=== PATIENT | female | born 1980 | race American Indian/Alaskan Native ===

== ENCOUNTER 2017-01-25 15:20 | Emergency (ER) | payer SELFPAY ==
--- NOTE | 2017-01-25 17:16 | Emergency Department Report ---
Entered by NELIA CHU, acting as scribe for RODNEY ASHLEY NP. Chief Complaint: Abdominal Pain Stated Complaint: ABDOMINAL PAIN Time Seen by Provider: 01/25/17 17:07 - HPI History of Present Illness: 36 y/o female presents with abd pain that started 3 days ago. Sx include n/v. Pt endorses tobacco use. LMP 12/05/16. - ROS Review of Systems: +abd pain +n/v - Exam Vital Signs: Vital Signs 01/25/17 17:04 Temperature 98.6 F Pulse Rate 63 Respiratory 18 Rate Blood Pressure 164/104 O2 Sat by Pulse 100 Oximetry Physical Exam: abd: ling-umblical TTP, no rebound no guarding MSE screening note: Focused history and physical exam performed. Due to findings the following was ordered: labs ED Disposition for MSE Condition: Stable This documentation as recorded by the scribe,NELIA CHU,accurately reflects the service I personally performed and the decisions made by ,RODNEY ASHLEY , FARM MANAGEMENT PROFESSOR.
[2017-01-25 17:18] LABS: Hematocrit 40.8 % (30.3-42.9); Hemoglobin 13.7 gm/dl (10.1-14.3); Mean Corpuscular HGB Conc 34 % (30-34); Mean Corpuscular Hemoglobin 31 pg (28-32); Mean Corpuscular Volume 93 fl (79-97); Platelet Count 272 K/mm3 (140-440); Red Blood Count 4.38 M/mm3 (3.65-5.03); White Blood Count 15.5 K/mm3 (4.5-11.0)
[2017-01-25 17:19] LABS: Basophils % (Auto) 0.3 % (0.0-1.8); Eosinophils % (Auto) 1.3 % (0.0-4.3)
[2017-01-25 17:35] LABS: Alanine Aminotransferase 27 units/L (7-56); Albumin/Globulin Ratio 1.3 %; Alkaline Phosphatase 59 units/L (35-129); Anion Gap 17 mmol/L; Blood Urea Nitrogen 5 mg/dL (7-17); Calcium 9.2 mg/dL (8.4-10.2); Carbon Dioxide 27 mmol/L (22-30); Chloride 99.5 mmol/L (98-107); Glucose 89 mg/dL (65-100); Lipase 12 units/L (13-60); Potassium 3.4 mmol/L (3.6-5.0); Sodium 140 mmol/L (137-145)
[2017-01-25 18:07] LABS: Bilirubin,Urine NEG (Negative); Blood,Urine SM (Negative); Ketones,Urine NEG (Negative); Leukocyte Esterase,Urine NEG (Negative); Mucus,Urine FEW /HPF; Nitrite,Urine NEG (Negative); Protein,Urine <15 mg/dL mg/dL (Negative); Urobilinogen,Urine < 2.0 mg/dL (<2.0)
[2017-01-26 02:04] VITALS: BP 150/91
[2017-01-26] MEDS ORDERED: ZOFRAN IV ONE (03:05)
[2017-01-26] MEDS ORDERED: MORPHINE IV ONE (03:05)
--- NOTE | 2017-01-26 03:08 | Emergency Department Report ---
ED Abdominal Pain HPI - General Chief Complaint: Abdominal Pain Stated Complaint: ABDOMINAL PAIN Time Seen by Provider: 01/25/17 17:07 Source: patient Mode of arrival: Ambulatory Limitations: No Limitations - History of Present Illness MD Complaint: abdominal pain -: days(s) (three) Location: RUQ Radiation: none Migration to: no migration Quality: sharp, dull Consistency: intermittent Associated Symptoms: nausea, vomiting, diarrhea - Related Data Previous Rx's Medication Instructions Recorded Last Taken Type Cephalexin [Keflex] 1,000 mg PO Q12HR #14 cap 01/26/17 Unknown Rx Ondansetron [Zofran Odt] 4 mg PO Q8HR PRN #14 tab.rapdis 01/26/17 Unknown Rx oxyCODONE /ACETAMINOPHEN [Percocet 1 tab PO Q6HR PRN #10 tablet 01/26/17 Unknown Rx 5/325] Allergies Allergy/AdvReac Type Severity Reaction Status Date / Time No Known Allergies Allergy Unverified 01/25/17 17:04 ED Review of Systems ROS: Stated complaint: ABDOMINAL PAIN Other details as noted in HPI Comment: All other systems reviewed and negative Constitutional: denies: chills, fever Respiratory: denies: cough, shortness of breath, SOB with exertion Cardiovascular: denies: chest pain, dyspnea on exertion, syncope Gastrointestinal: abdominal pain, nausea, vomiting, diarrhea. denies: constipation, hematemesis, melena, hematochezia Neurological: denies: headache ED Past Medical Hx - Past Medical History Previous Medical History?: Yes Additional medical history: Obesity - Surgical History Past Surgical History?: Yes Additional Surgical History: x 3 - Social History Smoking Status: Current Every Day Smoker Substance Use Type: Non Opiate Pain - Medications Home Medications: Home Medications Medication Instructions Recorded Confirmed Last Taken Type Cephalexin [Keflex] 1,000 mg PO Q12HR #14 cap 01/26/17 Unknown Rx Ondansetron [Zofran Odt] 4 mg PO Q8HR PRN #14 tab.rapdis 01/26/17 Unknown Rx oxyCODONE /ACETAMINOPHEN [Percocet 1 tab PO Q6HR PRN #10 tablet 01/26/17 Unknown Rx 5/325] ED Physical Exam - General Limitations: No Limitations General appearance: alert, in no apparent distress - ENT ENT exam: Present: normal exam - Neck Neck exam: Present: normal inspection - Respiratory Respiratory exam: Present: normal lung sounds bilaterally. Absent: wheezes, rales, rhonchi - Cardiovascular Cardiovascular Exam: Present: regular rate, normal rhythm, normal heart sounds - GI/Abdominal GI/Abdominal exam: Present: soft, tenderness. Absent: distended, guarding, rebound, rigid, normal bowel sounds, diminished bowel sounds, mass, bruit, pulsatile mass, hernia - Neurological Exam Neurological exam: Present: alert, oriented X3, CN II-XII intact - Skin Skin exam: Present: warm, normal color ED Course Vital Signs 01/25/17 01/26/17 17:04 02:04 Temperature 98.6 F Pulse Rate 63 67 Respiratory 18 16 Rate Blood Pressure 164/104 Blood Pressure 150/91 [Left] O2 Sat by Pulse 100 97 Oximetry - Reevaluation(s) Reevaluation #1: 01/26/17 05:[address] Brennan from surgery who advised patient can be discharge home to follow up with him today at 11:30 AM ED Medical Decision Making - Lab Data Result diagrams: 01/25/17 17:10 01/25/17 17:10 Critical care attestation.: If time is entered above; I have spent that time in minutes in the direct care of this critically ill patient, excluding procedure time. ED Disposition Clinical Impression: Abdominal pain, Acute cholecystitis Disposition: -01 TO HOME OR SELFCARE Is pt being admited?: No Does the pt Need Aspirin: No Condition: Stable Instructions: Abdominal Pain (ED) Additional Instructions: FOLLOW UP WITH DR BRENNAN TODAY AT 11:30 AM. Referrals: PRIMARY MD GURPREET [Primary Care Provider] - 3-5 Days ROSSANA BRENNAN MD [Staff Physician] - 3-5 Days
[2017-01-26] MEDS ORDERED: NACL ONE (03:40)
--- NOTE | 2017-01-26 05:04 | Cat Scan Report ---
FINAL REPORT PROCEDURE: CT ABDOMEN PELVIS W CON TECHNIQUE: Computerized axial tomography of the abdomen and pelvis was performed after the IV injection of iodinated nonionic contrast. HISTORY: abdominal pain COMPARISON: No prior studies are available for comparison. FINDINGS: Visualized lower thorax: No significant abnormality. Liver: There is fatty infiltration of the liver with some focal fatty sparing.. Spleen: The spleen is slightly enlarged. Gallbladder and biliary system: The gallbladder is significantly distended. A few small stones are suspected. There is thickening of the gallbladder wall. There is stranding of the mesenteric fat around the gallbladder. Acute cholecystitis is possible. Further evaluation with ultrasound and possibly HIDA scan may be of benefit.. Pancreas: Normal. Adrenals: Normal. Kidneys: Normal. GI tract: No obstruction. No ileus or enteritis. The cecum, appendix and colon are normal.. Lymph nodes and mesentery: Normal. Vasculature: Normal. Bladder: Normal. Reproductive organs: There is a intrauterine device within the uterus.. Peritoneum: No free fluid. Musculoskeletal structures: No significant abnormality. Other: None. IMPRESSION: Distended gallbladder lumen with a few stones suspected. Thickening of the gallbladder wall with some stranding of the mesentery around the gallbladder. Acute cholecystitis is possible. Further imaging differentiation may be of benefit as discussed. Fatty infiltration of the liver with some focal fatty sparing. No evidence of intestinal or urinary tract obstruction.
[2017-01-26] MEDS ORDERED: ZOSYN/NS 3.375GM/50ML 3.375 GM/50 ML BAG IV SCH (06:00)
== END 2017-01-26 06:37 | disposition home or self-care (01) ==
LOC: ED 15:20
DX: K81.0 Acute cholecystitis (principal); E66.9 Obesity, unspecified; F17.200 Nicotine dependence, unspecified, uncomplicated
CPT/HCPCS: 36415; 74177; 80053; 81001; 83690; 84703; 85025; 96365; 96375; 99284; J2270; J2405; J2543; Q9967

== ENCOUNTER 2022-03-16 14:22 | Emergency (ER) | payer SELFPAY | END 2022-03-16 14:30 | disposition left against medical advice (07) | LOC: ED 14:22 | DX: M79.673 Pain in unspecified foot (principal); Z53.21 Procedure and treatment not carried out due to patient leaving prior to being seen by health care provider ==